=== PATIENT | male | born 1960 | race Two or more races ===

== ENCOUNTER 2020-05-07 05:45 | Day surgery (SDC) | payer OTHER ==
[~2020-05-07 05:45] MED LIST: ASPIR 8181 MG PO; ATORVASTATIN CA10 MG PO; HYDRODIURIL12.5 MG PO; PLAQUENIL; PLAVIX75 MG PO; TOPROL XL25 M1 PO; ZESTRIL2.5 MG PO
[2020-05-07] MEDS ORDERED: PERCOCET 5-3251 EACH PO (09:49)
[2020-05-07] MEDS ORDERED: PANTOPRAZOLE SO40 MG PO (09:49)
[2020-05-07] MEDS ORDERED: ZOFRAN4 MG PO (09:50)
[2020-05-07] MEDS ORDERED: DICLOFENAC SODI75 MG PO (09:51)
== END 2020-05-07 13:35 | disposition home or self-care (01) ==
LOC: CIR.AMB 05:45
PROVIDERS: ATTEND Surgery
DX: K80.18 Calculus of gallbladder with other cholecystitis without obstruction (principal); Z20.828 Contact with and (suspected) exposure to other viral communicable diseases